=== PATIENT | female | born 1995 | race Caucasian/White ===

== ENCOUNTER 2025-06-07 07:07 | Emergency (ER) | payer OTHER, SELFPAY ==
--- NOTE | ~2025-06-07 | CT_ITS ---
EXAMINATION: CT ABDOMEN PELVIS WITHOUT IV CONTRAST HISTORY: RUQ abd pain, concern for obstruction gallstone COMPARISON: Correlation is made with an abdominal ultrasound performed earlier in the day. TECHNIQUE: CT scan of the abdomen and pelvis was performed without contrast using standard departmental protocol. Coronal and sagittal reformatted images were generated and reviewed. Oral contrast material was not administered at the request of the referring physician. This CT exam was performed with one or more of the following dose reduction techniques: automated exposure control, adjustment of the mA and/or kV according to patient size, use of iterative reconstruction technique. DLP: 645 mGy-cm FINDINGS: LOWER CHEST: The visualized lung bases are clear. There is no pleural effusion. CARDIOVASCULATURE: The heart is normal in size. There is no pericardial effusion. LIVER: The liver is normal in size and contour. The liver has an unremarkable unenhanced appearance. GALLBLADDER / BILE DUCTS: The gallbladder is unremarkable. The gallstones noted on ultrasound are not visualized by CT. There is no intra or extrahepatic biliary ductal dilatation. SPLEEN: The spleen is normal in size and has an unremarkable unenhanced appearance. PANCREAS: The pancreas has an unremarkable unenhanced appearance. ADRENAL GLANDS: Unremarkable. KIDNEYS/RETROPERITONEUM: No renal calculi are identified. There is no hydronephrosis. LYMPH NODES: No retroperitoneal lymphadenopathy is identified in the abdomen or pelvis. VASCULATURE: The abdominal aorta is normal in caliber. MESENTERY/PERITONEUM: No free fluid. No masses. There is no free intraperitoneal gas. STOMACH: The stomach is collapsed, limiting evaluation. SMALL BOWEL: The small bowel is normal in caliber. COLON: There is a moderate amount stool throughout the colon. APPENDIX: Normal. URINARY BLADDER/PELVIC ORGANS: The urinary bladder is unremarkable. The uterus has an unremarkable unenhanced appearance. BONES / SOFT TISSUES: No suspicious bony or soft tissue abnormalities. CT/CT abdomen pelvis wo IV con IMPRESSION: 1. The gallstones noted on ultrasound are not visualized by CT. If there is clinical concern for acute cholecystitis, HIDA scan is recommended. 2. Moderate amount of stool throughout the colon Electronically signed by: Sebastian Hwang MD 06/07/2025 12:21 PM [facility]
--- NOTE | ~2025-06-07 | US_ITS ---
EXAMINATION: US ABDOMEN LIMITED CLINICAL INFORMATION: Right upper quadrant pain.. COMPARISON: None available. TECHNIQUE: Real-time ultrasound right upper quadrant abdomen using grayscale technique. FINDINGS: PANCREAS: No peripancreatic fluid collections. LIVER: Liver measures 20 cm. No nodular surface. Normal echotexture. No solid or cystic lesion. No intrahepatic biliary ductal dilatation. GALLBLADDER: Gallbladder is contracted with multiple intraluminal hyperechoic structures and posterior shadowing. No pericholecystic fluid collection. Gallbladder wall measures 3 mm. COMMON BILE DUCT 3 mm. FREE FLUID: None. US/US abdomen limited IMPRESSION: Contracted gallbladder. Cholelithiasis. No choledocholithiasis. Hepatomegaly. Electronically signed by: Jassi Caldera MD 06/07/2025 09:29 AM EST
[2025-06-07 07:11] VITALS: BP 119/66; PULSE 77; RESP 16; TEMP 36.1; O2SAT 99; BMI 32.1
[2025-06-07 07:55] LABS: MANUAL DIFF FLAG NO
[2025-06-07 07:57] LABS: Hematocrit 36.9 % (37.0-47.0); Hemoglobin 11.9 g/dl (12.0-16.0); Imm Gran Abs Auto 0.02 X10*3/uL (0.00-0.03); Imm Gran Pct Auto 0.3 % (0.0-0.4); Lymphocytes Absolute Auto 2.1 X10*3/uL (1.2-4.9); Mean Corpuscular HGB Conc 32.2 g/dl (31.0-35.0); Mean Corpuscular Hemoglobin 26.5 pg (27.0-33.0); Mean Corpuscular Volume 82.2 fL (80.0-98.0); NRBC Abs Auto 0.000 X10*3/uL (0.0-0.012); NRBC Pct Auto 0.0 /100WBC (0.0-0.2); Platelet Count 212 X10*3/uL (160-400); Red Blood Count 4.49 X10*6/uL (4.20-5.50); White Blood Count 8.0 X10*3/uL (4.8-10.8)
--- NOTE | 2025-06-07 07:59 | ED_ITS ---
HPI - General Adult General Chief complaint: Abdominal Pain Stated complaint: gallbladder issues? Time Seen by Provider: 06/07/25 08:46 Source: patient Mode of arrival: ambulatory Limitations: no limitations History of Present Illness ED Provider: Tayla Woodruff PA-C HPI narrative: Patient is a 29 year old female with a history of and 1 month post (vaginal / no complications) presenting to the emergency department today with abdominal pain and nausea. Patient states that over the last few days she has had nausea and pain in her abdomen after eating. Patient states that she went to an urgent care who stated it could be her gallbladder and to switch to a bland diet. Patient states that she did 1 day of a bland diet which helped but then she ate and the pain came back. Patient denies any other complaints at this time. Related Data Allergies Allergy/AdvReac Type Severity Reaction Status Date / Time No Known Allergies Allergy Verified 06/07/25 07:15 Review of Systems 2 Constitutional: Constitutional: Reports as per HPI Eyes: Eyes: Reports as per HPI ENT: Reports as per HPI Cardiovascular: Cardiovascular: Reports as per HPI Respiratory: Respiratory: Reports as per HPI Gastrointestinal: Gastrointestinal: Reports as per HPI Genitourinary: Genitourinary: Reports as per HPI Musculoskeletal: Musculoskeletal: Reports as per HPI Integumentary/Breasts: Skin/Breast: Reports as per HPI Neurologic: Reports as per HPI Psychiatric: Psychiatric: Reports as per HPI Endocrine: Endocrine: Reports as per HPI Hematologic/Lymphatic: Hematologic/Lymphatic: Reports as per HPI Allergic/Immunologic: Allergic/Immunologic: Reports as per HPI [facility] Past Medical History Attestation statement: The following information was validated with the patient. Source: old records reviewed and nursing notes reviewed Social History Social History Advance Directives: No Advance Directives Information Provided: No Do you have a plan to hurt others: No Plan Physical Exam ED Vital Signs: Vital Signs - 24 hr 06/07/25 07:11 06/07/25 09:59 06/07/25 13:24 Temperature 97.0 F 97.8 F 97.9 F Pulse Rate 77 77 84 Respiratory Rate 16 18 16 Blood Pressure 119/66 115/78 109/74 Pulse Oximetry 99 98 98 Oxygen Delivery Method Room Air Room Air Room Air 06/07/25 14:01 Temperature 97.9 F Pulse Rate 84 Respiratory Rate 16 Blood Pressure 109/74 Pulse Oximetry 98 Oxygen Delivery Method Room Air BMI result Body Mass Index 32.1 Const General: cooperative, no acute distress, alert and awake Nutritional Appearance: well nourished Orientation/consciousness: patient oriented x3 HENMT Head: Yes normal to inspection and Yes atraumatic Ears: hearing grossly normal bilaterally and external ears normal General nose exam: Normal external nose present, no nasal discharge noted and no epistaxis Face and sinus: Yes normal facial exam, No abrasion and No laceration Mouth: Normal oral and palatal mucosa present, no drooling and no muffled voice Eyes General: appearance normal, both eyes and all related structures Periorbital: periorbital findings normal Eyelids: Yes eyelids normal Conjunctivae: conjunctivae normal Pupils: Equal, round and reactive pupils present EOM: EOMs intact bilaterally Neck Neck: Yes normal visual inspection and Yes full ROM Resp Effort & Inspection: normal respiratory effort and able to speak in complete sentences Neuro General: patient oriented x3, moves all extremities and CN's II-XI intact bilaterally Cranial nerves: Yes Equal, round and reactive pupils present Cognition (Neuro): normal cognition Extrem General: Yes normal to inspection, Yes full ROM and Yes capillary refill normal Psych Appearance: grossly normal Mental Status: mental status grossly normal Affect: normal affect Attitude: cooperative Thought process: Normal thought process present Thought content: Normal thought content present Insight: Good insight present (Psych) Course Course Course Narrative: Rapid medical examination performed in triage by Tayla Woodruff PA-C: Patient is a 29 year old female presenting to the emergency department with abdominal pain and nausea. Patient states she has been having abdominal pain and nausea after eating, concerned it is her gallbladder. Patient states that she is 1 month post . Unremarkable with vaginal delivery that was uncomplicated. Detailed physical exam and review of systems are deferred to the special needs child caregiver. Labs ordered. Patient placed back in the waiting room pending room availability and results. Medical Decision Making Medical Decision Making MDM Narrative: Patient is a 29 year old female with a history of and 1 month post (vaginal / no complications) presenting to the emergency department today with abdominal pain and nausea. Patient's physical exam was as noted in the physical exam portion of this note. Patient's blood work LFTs showed a total bilirubin of 1.4, AST of 433, ALT of 478, and alk phos of 295. Patient's urine showed no acute process. Patient's RUQ abdominal US showed gallstones with no evidence of choledocolithiasis or cholecystitis. I spoke with the general surgeon, Dr. Jean, who recommended CT of abdomen/pelvis with IV contrast. Patient declined contrast because of her need to pump and dump her breast milk for 24 hours after. Patient received a CT abd/pelvis without contrast that was unremarkable for any acute process. I spoke with Dr. Jean again and he stated if the patient is comfortable and comfortable with it - discharge with outpatient follow up for probable HIDA scan and further evaluation. I explained my physical exam findings as well as all test results to the patient and the patient's mother. I answered all questions asked by the patient and the patient's mother. Patient was comfortable while in the department - did not require any pain medication and able to tolerate PO intake. I stressed the importance of the patient taking her medication as directed (either prescribed or as the over the counter packaging recommends). I stressed the importance of the patient following up with her primary care provider. I stressed the importance of the patient returning to the emergency department immediately if her symptoms were to worsen or if she were to develop any dizziness, shortness of breath, difficulty breathing, chest pain, blurry vision, loss of vision, nausea, vomiting, abdominal pain, fever, chills, back pain, or any other complaints. Patient and the patient's mother verbalized agreement and understanding with this treatment plan and discharge. Differential Diagnosis Differential Diagnoses: The differential diagnosis associated with the presentation includes Biliary colic Gallstones Elevated LFTs Admission/Observation Consideration of admission/observation: Escalation of care including admission/observation considered Patient would have been admitted to the hospital had her work up had any findings where hospital admission was appropriate and her clinical presentation warranted hospital admission. Consult Healthcare Provider Management of the patient was discussed with: Hospital Food Service Worker (spoke with the general surgeon as noted in the MDM Rationale portion of this note. ) Lab Data [facility] Lab Attestation statement: I reviewed the patient's lab results. My interpretation of these results are in the MDM Rationale portion of this note. 06/07/25 07:49 06/07/25 07:49 Labs: Lab Results 06/07/25 06/07/25 Range/Units 07:49 09:57 WBC 8.0 (4.8-10.8) X10*3/uL RBC 4.49 (4.20-5.50) X10*6/uL Hgb 11.9 L (12.0-16.0) g/dl Hct 36.9 L (37.0-47.0) % MCV 82.2 (80.0-98.0) fL MCH 26.5 L (27.0-33.0) pg MCHC 32.2 (31.0-35.0) g/dl RDW 13.2 (11.0-16.0) % Plt Count 212 (160-400) X10*3/uL MPV 9.9 (9.4-12.3) fL Immature Gran % (Auto) 0.3 (0.0-0.4) % Neut % (Auto) 63.5 (45-73) % Lymph % (Auto) 25.9 (20-40) % [place] % (Auto) 8.3 (2-11) % Eos % (Auto) 1.6 (0-4) % Baso % (Auto) 0.4 (0-2) % Lymph # (Auto) 2.1 (1.2-4.9) X10*3/uL [place] # (Auto) 0.7 (0.1-1.2) X10*3/uL Eos # (Auto) 0.1 (0.0-0.4) X10*3/uL Baso # (Auto) 0.0 (0.0-0.2) X10*3/uL Abs Immat Gran (auto) 0.02 (0.00-0.03) X10*3/uL Absolute Neuts (auto) 5.1 (2.0-8.3) x10*3/uL Absolute Nucleated RBC 0.000 (0.0-0.012) X10*3/uL Nucleated RBC % (auto) 0.0 (0.0-0.2) /100WBC Sodium 139 (135-145) mmol/L Potassium 3.6 (3.3-5.1) mmol/L Chloride 104 (96-108) mmol/L Carbon Dioxide 29 (22-29) mmol/L Anion Gap 10 L (12-20) BUN 7 L (9-16) mg/dL Creatinine 0.76 (0.5-1.4) mg/dL Estim Creat Clear Calc 110.8 Estimated GFR > 60 Random Glucose 108 (60-115) mg/dL Calcium 9.3 (8.4-10.2) mg/dL Total Bilirubin 1.4 H (0.0-1.0) mg/dL AST 433 H (5-31) U/L ALT 478 H (0-31) U/L Alkaline Phosphatase 295 H (39-117) U/L Total Protein 6.8 (6.5-8.0) g/dL Albumin 4.1 (3.5-5.0) g/dL Beta HCG, Quant < 2 mIU/mL Urine Color Dark Yellow Urine Appearance Cloudy Urine pH 6.0 (5.0-9.0) Ur Specific [place] 1.015 (1.005-1.025) Urine Protein Negative (Neg-Trace) mg/dL Urine Glucose (UA) Negative (Negative) mg/dL Urine Ketones Negative (Negative) mg/dL Urine Blood Negative (Negative) Urine Nitrite Negative (Negative) Ur Leukocyte Esterase Negative (Negative) Independent Interpretation I performed an independent interpretation of an: Ultrasound and CT Scan Interpretation: My interpretation is in agreement with the radiologist's impression of these imaging studies as written below. EXAMINATION: US ABDOMEN LIMITED CLINICAL INFORMATION: Right upper quadrant pain.. COMPARISON: None available. TECHNIQUE: Real-time ultrasound right upper quadrant abdomen using grayscale technique. FINDINGS: PANCREAS: No peripancreatic fluid collections. LIVER: Liver measures 20 cm. No nodular surface. Normal echotexture. No solid or cystic lesion. No intrahepatic biliary ductal dilatation. GALLBLADDER: Gallbladder is contracted with multiple intraluminal hyperechoic structures and posterior shadowing. No pericholecystic fluid collection. Gallbladder wall measures 3 mm. COMMON BILE DUCT 3 mm. FREE FLUID: None. US/US abdomen limited IMPRESSION: Contracted gallbladder. Cholelithiasis. No choledocholithiasis. Hepatomegaly. Electronically signed by: Jassi Caldera MD 06/07/2025 09:29 AM EST Dictated By: Jassi Pace MD Signed By: Electronically signed by Jassi Jarvis MD 06/07/25 0929 Reason for Exam: RUQ abd pain, concern for obstruction gallstone EXAMINATION: CT ABDOMEN PELVIS WITHOUT IV CONTRAST HISTORY: RUQ abd pain, concern for obstruction gallstone COMPARISON: Correlation is made with an abdominal ultrasound performed earlier in the day. TECHNIQUE: CT scan of the abdomen and pelvis was performed without contrast using standard departmental protocol. Coronal and sagittal reformatted images were generated and reviewed. Oral contrast material was not administered at the request of the referring physician. This CT exam was performed with one or more of the following dose reduction techniques: automated exposure control, adjustment of the mA and/or kV according to patient size, use of iterative reconstruction technique. DLP: 645 mGy-cm FINDINGS: LOWER CHEST: The visualized lung bases are clear. There is no pleural effusion. CARDIOVASCULATURE: The heart is normal in size. There is no pericardial effusion. LIVER: The liver is normal in size and contour. The liver has an unremarkable unenhanced appearance. GALLBLADDER / BILE DUCTS: The gallbladder is unremarkable. The gallstones noted on ultrasound are not visualized by CT. There is no intra or extrahepatic biliary ductal dilatation. SPLEEN: The spleen is normal in size and has an unremarkable unenhanced appearance. PANCREAS: The pancreas has an unremarkable unenhanced appearance. ADRENAL GLANDS: Unremarkable. KIDNEYS/RETROPERITONEUM: No renal calculi are identified. There is no hydronephrosis. LYMPH NODES: No retroperitoneal lymphadenopathy is identified in the abdomen or pelvis. VASCULATURE: The abdominal aorta is normal in caliber. MESENTERY/PERITONEUM: No free fluid. No masses. There is no free intraperitoneal gas. STOMACH: The stomach is collapsed, limiting evaluation. SMALL BOWEL: The small bowel is normal in caliber. COLON: There is a moderate amount stool throughout the colon. APPENDIX: Normal. URINARY BLADDER/PELVIC ORGANS: The urinary bladder is unremarkable. The uterus has an unremarkable unenhanced appearance. BONES / SOFT TISSUES: No suspicious bony or soft tissue abnormalities. CT/CT abdomen pelvis wo IV con IMPRESSION: 1. The gallstones noted on ultrasound are not visualized by CT. If there is clinical concern for acute cholecystitis, HIDA scan is recommended. 2. Moderate amount of stool throughout the colon Electronically signed by: Sebastian Hwang MD 06/07/2025 12:21 PM EST Dictated By: Sebastian Hwang MD Signed By: Electronically signed by Sebastian Hwang MD 06/07/25 1221 Radiology Impression Discussion of test interpretation with radiology: I have reviewed the radiologist's reading. Independent Historian Clinical information obtained from an independent historian. History obtained from or confirmed by: Parent (patient's mother provided additional history and confirmed the history provided by the patient. ) Discharge Plan Discharge Clinical Impression: LFT elevation, Biliary colic, Gallstones Patient Disposition: Home, Self-Care Instructions: Biliary Colic (ED), Gallstones (ED), HIDA Scan (DC) Additional Instructions: Your work up today showed gallstones and elevated liver function tests. I am suspicious your gallbladder is intermittently functioning and may need removal. You must follow up with a general surgeon about this. Maintain a bland diet. IF you are prescribed home medications and/or you are taking over the counter medications at home - it is very important you continue to do so as prescribed / directed unless told otherwise by a healthcare provider. Follow up with your primary care provider. Do your best to stay well hydrated and rest. Return to the emergency department immediately if your symptoms worsen or if you develop any numbness, tingling, dizziness, shortness of breath, difficulty breathing, chest pain, blurry vision, loss of vision, nausea, vomiting, abdominal pain, fever, chills, back pain, or any other complaints. L If you do not have a primary care provider - call any of the below numbers to establish and follow up with a primary care provider. [facility] Primary Care ([place]) [phone] [place] [address], [address] [facility] Primary Care ([address] [place]) [phone] [place] [address], [address] [facility], [address] [facility] Primary Care ([address] [place]) [phone] [place] [address], [address] [facility], [address] [facility] Primary Care ([place]) [phone] [place] [address], [address] [place], [address] [facility] Family Medicine [phone] [place] [address], [address] Please see the information below about our Patient Portal. If you are not yet enrolled in the [facility] Patient Portal, you will receive an enrollment email invitation following your visit to any [facility] setting. You may also self-enroll in the Patient Portal by visiting our website: [email or web address] The following information is required to access the Patient Portal: - Your [facility] Medical Record Number - Your personal home email address (must match what is in your electronic medical record, Registration staff can assist with this) - Name - Date of Capabilities of the Patient Portal: - Message some providers - View upcoming appointments - Access your health summary, medical history, and visit history - View current conditions and allergies - View procedure and lab results - View your medications, including guidelines, side effects, and precautions - Complete pre-appointment questionnaires requested by your provider - Ready summary reports of your office visits and procedures To access the Patient Portal Mobile [employer], follow these directions: - Search [place] in the [employer] Store or [employer] Store - Download the [employer]amar - Search for [facility] - Enter your login/password Referrals: [facility] General Surgeons [Provider Group, General Surgery] Referral Note: Call to establish and follow up with the general surgery team for gallbladder evaluation. Stand Alone Forms: Work/School Release Interventions: ED Discharge Assessment Last Done: 06/07/25 14:01 Discharge Date/Time: 06/07/25 14:02 Print Language: Romansh
[2025-06-07 08:18] LABS: Alanine Aminotransferase 478 U/L (0-31); Albumin Level 4.1 g/dL (3.5-5.0); Alkaline Phosphatase 295 U/L (39-117); Anion Gap 10 (12-20); Aspartate Amino Transferase 433 U/L (5-31); Blood Urea Nitrogen 7 mg/dL (9-16); Calcium 9.3 mg/dL (8.4-10.2); Carbon Dioxide 29 mmol/L (22-29); Chloride 104 mmol/L (96-108); Creatinine Clr Calc Pharmacy 110.8; Estimated Glomerular Filt Rate > 60; Potassium 3.6 mmol/L (3.3-5.1); Sodium 139 mmol/L (135-145); Total Protein 6.8 g/dL (6.5-8.0)
[2025-06-07 09:59] VITALS: BP 115/78; PULSE 77; RESP 18; TEMP 36.6; O2SAT 98
[2025-06-07 10:12] LABS: Appearance Urine Cloudy; Glucose Urine UA Negative (Negative); PH 6.0 (5.0-9.0); Specific Gravity - Urine 1.015 (1.005-1.025)
[2025-06-07 13:24] VITALS: BP 109/74; PULSE 84; RESP 16; TEMP 36.6; O2SAT 98
[2025-06-07 14:01] VITALS: BP 109/74; PULSE 84; RESP 16; TEMP 36.6; O2SAT 98
== END 2025-06-07 14:02 | disposition home or self-care (01) ==
PROVIDERS: Emergency Provider Emergency Medicine
DX: O26.63 Liver and biliary tract disorders in the puerperium (principal); R79.89 Other specified abnormal findings of blood chemistry; K80.20 Calculus of gallbladder without cholecystitis without obstruction
CPT/HCPCS: 36415; 74176; 76705; 80053; 81003; 84702; 85025; 99283; 99284

== ENCOUNTER → 2025-06-07 08:27 | Outpatient (BNV) | payer SELFPAY | PROVIDERS: Visit Provider Radiology Diagnostic Radiology | DX: K80.20 Calculus of gallbladder without cholecystitis without obstruction (principal); R16.0 Hepatomegaly, not elsewhere classified | CPT/HCPCS: 74176; 76705 ==